=== PATIENT | female | born 1965 | race Caucasian/White ===

== ENCOUNTER → 2018-01-22 | Outpatient (CLI) | payer OTHER ==
--- NOTE | 2018-01-22 13:42 | DIAGNOSTIC IMAGING REPORT ---
PELVIC COMPLETE NON OB HISTORY: 52 years-old Female N93.9 acute abnormal uterine bleeding COMPARISON: None available TECHNIQUE: Multiple real-time sonographic images of the deep pelvic structures were obtained transabdominally assessing grayscale appearance, color and spectral flow. Patient refused the transvaginal portion of the study. FINDINGS: Uterus measures 8.0 x 4.6 x 5.1 cm and is slightly retroflexed. Endometrium measures 9 mm. No myometrial mass lesions identified. Structure of the right adnexum suggesting right ovary measures 2.9 x 2.5 x 1.7 cm. 1.0 cm cystic focus of the right adnexum suggests ovarian or para ovarian cyst. Arterial inflow is seen to the right adnexum. Structure of the left adnexum suggesting left ovary measures 2.7 x 1.3 x 2.0 cm. Arterial inflow to the left adnexum is seen. No significant free pelvic fluid. Study is limited without transvaginal images. IMPRESSION: 1. Limited study with only the transabdominal portion of the exam conducted. 2. 9 mm endometrium, abnormally thickened if the patient is postmenopausal however would be considered physiologic if the patient is premenopausal. 3. Limited visualization of the ovaries with 1.0 cm cystic focus of the right adnexum suggesting an ovarian or para ovarian cyst. The above report was generated using voice recognition software. It may contain grammatical, syntax or spelling errors. Electronically signed by: Kobi Holguin M.D. 01/22/2018 1:41 PM Dictated Date/Time: 01/22/2018 1:37 PM
== END | disposition home or self-care (01) ==
LOC: C.ULTR 12:12
PROVIDERS: ATTEND Physician Assistant
DX: N93.9 Abnormal uterine and vaginal bleeding, unspecified (principal)

== ENCOUNTER → 2018-01-27 | Outpatient (CLI) | payer OTHER ==
[2018-01-27 10:28] LABS: BLOOD UREA NITROGEN 17 mg/dl (7-18); CALCIUM 8.7 mg/dl (8.5-10.1); CARBON DIOXIDE 30 mmol/L (21-32); CHOLESTEROL 167 mg/dl (0-200); CREATININE 0.87 mg/dl (0.60-1.20); GLUCOSE 87 mg/dl (70-99); POTASSIUM 3.7 mmol/L (3.5-5.1); SODIUM 139 mmol/L (136-145)
[2018-01-27 10:36] LABS: FOLLICLE STIMULAT HORMONE 51.78 IU/L; LUTEINIZING HORMONE 20.29 IU/L
[2018-01-27 10:39] LABS: LDL CHOLESTEROL CALCULATED 93 mg/dl
[2018-01-27 11:15] LABS: HEP C IGG 13 YRS+OLDER_RFLX NEG (NEG)
== END | disposition home or self-care (01) ==
LOC: C.LAB 09:13
PROVIDERS: ATTEND Physician Assistant
DX: Z13.220 Encounter for screening for lipoid disorders (principal); Z11.59 Encounter for screening for other viral diseases; N93.9 Abnormal uterine and vaginal bleeding, unspecified; I10 Essential (primary) hypertension